=== PATIENT | female | born 1970 | race Caucasian/White ===

== ENCOUNTER 2023-02-16 13:07 | Outpatient (REF) | payer OTHER, SELFPAY ==
--- NOTE | ~2023-02-16 | XR_ITS ---
EXAMINATION: XR THORACIC SPINE XR LUMBAR SPINE CLINICAL INFORMATION: Scoliosis. COMPARISON: None available. TECHNIQUE: 2 views thoracic spine, 4 views lumbar spine. FINDINGS: There is a cssshgzt-tn-jswrwt biconvex thoracolumbar scoliosis present. Mild degenerative changes are seen in the spine. There is mild grade 1 anterolisthesis of L5 upon S1. No acute fractures or bony destructive lesions are seen. Paraspinal soft tissues are unremarkable. There is no instability seen with flexion and extension. XR/XR thoracic spine 2V IMPRESSION: Biconvex thoracolumbar scoliosis with mild degenerative changes. Mild grade 1 anterolisthesis of L5 upon S1.
--- NOTE | ~2023-02-16 | XR_ITS ---
EXAMINATION: XR THORACIC SPINE XR LUMBAR SPINE CLINICAL INFORMATION: Scoliosis. COMPARISON: None available. TECHNIQUE: 2 views thoracic spine, 4 views lumbar spine. FINDINGS: There is a suiuihyq-yi-hdqucf biconvex thoracolumbar scoliosis present. Mild degenerative changes are seen in the spine. There is mild grade 1 anterolisthesis of L5 upon S1. No acute fractures or bony destructive lesions are seen. Paraspinal soft tissues are unremarkable. There is no instability seen with flexion and extension. XR/XR lumbar spine 4V min IMPRESSION: Biconvex thoracolumbar scoliosis with mild degenerative changes. Mild grade 1 anterolisthesis of L5 upon S1.
== END 2023-02-16 13:08 | disposition home or self-care (01) ==
LOC: HO.HOSX 13:07
PROVIDERS: PCP Internal Medicine; Visit Provider Physician Assistant
DX: M41.20 Other idiopathic scoliosis, site unspecified (principal)
CPT/HCPCS: 72070; 72110

== ENCOUNTER 2023-02-16 13:07 | Outpatient (AMB) | payer OTHER, SELFPAY ==
--- NOTE | 2023-02-16 13:42 | HO.SPINEOV ---
Intake Intake Visit Reasons: Scoliosis Intake Note: Mrs. Yoder is here today regarding scoliosis. No Imaging. Senior Branch Manager Required: No Assessment & Plan Assessment & Plan (1) Scoliosis (and kyphoscoliosis), idiopathic: Code(s): M41.20 - Other idiopathic scoliosis, site unspecified Plan . This is a very nice 52-year-old female presents to the office today for evaluation of scoliosis. The patient has known about her scoliosis since she was a teenage girl, she was in a brace and has been dealing with on and off back pain since that time. Over the last 5 years, but more so in the last year she has had a severe centralize lower lumbar pain with radiation to the left side. She does not report any specific radicular symptoms. Her back pain is aggravated with standing and walking and will go away if she lays down flat. She takes ibuprofen as needed. Through the years she has been through all the usual conservative treatments including healthcare administration intern, physical therapy and acupuncture. She has not yet had any injections. At this point, the pain is getting to where it does affect her quality of life on a daily basis. It is not limiting her in the sense that it is disabling but it is persistent and always present. PMH: She is otherwise healthy Social hx: She does not smoke Medications: Ibuprofen Allergies: None Physical exam: Awake alert oriented no acute distress, intact strength and reflexes of the lower extremities. Imaging review: No MRI or CT to review today, the patient was sent for standing AP and lateral thoracic and lumbar films. She has an S shaped curve from her midthoracic dextroscoliosis, as well as a levoscoliosis in her lumbar spine. The apex seems to be at the L2 and L3 vertebral bodies. It does extend from L1 down all the way L5 however.. Impression: This is a very nice 52-year-old female presents for evaluation of scoliosis the been getting progressively worse over the last 5 years, but persistently worse over the last year so. The pain is not disabling, but it is affecting her quality of life. She has tried many of the usual conservative treatments. She has not yet had any cortisone injections. Her neurological examination is intact. Her gait she has x-rays showing a significant levo scoliotic curve in the lumbar spine with the apex at the L2-3 region but extending from L1 down to the L5 level. We briefly discussed the fact that this would require scoliosis correction with interbody fusion to be treated surgically. We generally reserve this for people who gotten to the point were the pain has become intolerable. She does not feel at this point that that is where she is at but she is concerned with the fact that as time goes on could it be come more complicated fix, or could the recovery become significantly more difficult for her as she gets older. I told her we should get some imaging 1st, lumbar MRI and lumbar CT and have her come back and visit with Dr. Castro. Thank you for allowing us to care for your patient. The total time spent with this visit with this patient was 45 minutes reviewing history, physical exam, x-ray of lumbar and thoracic imaging review, and implementation of treatment plan or further diagnostic testing Trevor Castro MD,PhD [facility] Orders: Orders XR lumbar spine 4V min Today M41.20 - Other idiopathic scoliosis, site unspecified XR thoracic spine 2V Today M41.20 - Other idiopathic scoliosis, site unspecified CT lumbar spine wo IV con Today M41.20 - Other idiopathic scoliosis, site unspecified MR lumbar spine wo con Today M41.20 - Other idiopathic scoliosis, site unspecified Coding Level of Care Code New Pt Level 4 (30582) Diagnoses Scoliosis (and kyphoscoliosis), idiopathic M41.20
== END 2023-02-16 14:06 | disposition home or self-care (01) ==
PROVIDERS: PCP Internal Medicine; Visit Provider Physician Assistant
DX: M41.20 Other idiopathic scoliosis, site unspecified (principal)
CPT/HCPCS: 99204

== ENCOUNTER 2023-08-24 18:16 | Outpatient (REF) | payer BC, SELFPAY ==
--- NOTE | ~2023-08-24 | MR_ITS ---
EXAMINATION: MR LUMBAR SPINE WITHOUT CONTRAST CLINICAL INFORMATION: Idiopathic scoliosis. Low back pain. COMPARISON: X-ray dated 02/16/2023. TECHNIQUE: Multiplanar, multisequence imaging was obtained. FINDINGS: VERTEBRAL BODIES AND PARASPINAL STRUCTURES: There is a severe leftward curvature of the lumbar spine centered at the L2-L3 level. Significant multilevel right lateral disc space narrowing and endplate spurring noted, most severe at the L2-L3 level. There are mixed chronic and edematous endplate changes at the L2-L3 and L3-L4 levels. No compression fractures identified. No significant subluxations visible. There is mild edema in the posterior paraspinal soft tissues in the mid to upper lumbar spine on the right side which may be due to strain-type injury. CONUS MEDULLARIS AND CAUDA EQUINE: The distal cord, conus tip, and cauda equina nerve roots are normal. SPINAL LEVELS: L1-L2: Posterior subluxation and mild disc bulge present with mild facet arthropathy. No central canal stenosis. Mild right foraminal narrowing. L2-L3: Severe disc space narrowing with chronic fatty marrow endplate changes and ossific spurring. Mild facet arthropathy. No central canal stenosis. Nsnr-ao-agnysift right foraminal narrowing with bulging disc mildly encroach upon the right subarticular zone. L3-L4: Diffuse disc bulge and moderate facet arthropathy with thickening of the ligamentum flavum contributes to afbl-vd-bwwjmcce central canal stenosis and moderate bilateral foraminal narrowing. Mild endplate edematous changes as well. L4-L5: Mild disc bulge and dlrstobk-qk-jcyvxc facet arthropathy, worse on the left side. Mild central canal stenosis. Bulging disc and osseous spurring with significant left foraminal encroachment. Milder right foraminal narrowing. L5-S1: Disc bulge and ztxluius-xn-rzisnz facet arthropathy, worse on the left side, with facet spurring impressing upon the left S1 nerve root. No central canal stenosis. Severe left foraminal narrowing with bulging disc and osseous spurring distorting the exiting left L5 nerve root. MR/MR lumbar spine wo con IMPRESSION: Significant leftward lumbar spinal curvature with mixed chronic and edematous endplate changes at various levels. Uabp-ek-fjzwlpic central canal stenosis due to spondylosis at the L3-L4 level with moderate bilateral foraminal narrowing. Significant facet arthropathy on the left side at the L4-L5 level with mild central canal stenosis and severe left foraminal narrowing. Exuberant left-sided facet arthropathy and disc bulge at the L5-S1 level with severe left foraminal narrowing and distortion of the exiting left L5 nerve root.
== END 2023-08-24 18:17 | disposition home or self-care (01) ==
LOC: HO.MRI 18:16
PROVIDERS: PCP Internal Medicine; Visit Provider Physician Assistant
DX: M41.20 Other idiopathic scoliosis, site unspecified (principal)
CPT/HCPCS: 72148

== ENCOUNTER 2024-12-06 07:49 | Outpatient (AMB) | payer OTHER, SELFPAY ==
--- OUTSIDE RECORDS SUMMARY | 2024-12-06 07:57 | XMS_ITS | Clinical Summary ---
Author Organization [facility] [facility] lin Address [address] [facility] [place] [address] Care Team Providers Care Clean Room Operator Name Role Phone Pcp, No Primary Care Provider [phone] Allergies No known active allergies Medications lorazepam (ATIVAN) 0.5 MG tablet TAKE ONE TABLET BY MOUTH TWICE A DAY NEEDED 04/07/2023 Active valACYclovir (VALTREX) 500 MG tablet Take 1 tablet (500 mg total) by mouth 08/24/2022 Active Social History Tobacco Use Types Packs/Day Years Used Date Smoking Tobacco: Never Smokeless Tobacco: Never Tobacco Cessation:Counseling Given: Yes Comments No Sex and Gender Information Value Date Recorded Sex Assigned at Not on file Legal Sex Female 9:24 AM EST Gender Identity Not on file Sexual Orientation Not on file Last Filed Vital Signs Vital Sign Reading Time Taken Comments Blood Pressure 126/80 05/18/2023 4:58 PM EST Pulse 79 05/18/2023 4:58 PM EST Temperature 36.6 C (97.8 F) 05/18/2023 4:58 PM EST Respiratory Rate 16 05/18/2023 4:58 PM EST Oxygen Saturation 98% 05/18/2023 4:58 PM EST Inhaled Oxygen Concentration - - Weight 59 kg (130 lb) 05/18/2023 4:58 PM EST Height 162.6 cm (5' 4 ) 05/18/2023 4:58 PM EST Body Mass Index 22.31 05/18/2023 4:58 PM EST Plan of Treatment Health Maintenance Due Date Last Done Comments Colorectal Cancer: COLONOSCO PY Screening every 10 yrs (or Modifier) 1968 Depression: Screening Annual ly using PHQ-2/9 in Adults 18 yrs or above (or HM Modifier)([facility]) 1986 Hepatitis C Virus Infection in Adolescents and Adults: Screening (or Modifier) ([facility]) 1986 DEYA Screening: Once using ST OP-BANG Questionnaire for Adults with Conditions or high BMI([facility]) 1986 SDOH Screening Reminder: Jennifer uallamaury for all adults ([facility]) 1986 DTaP/Tdap/Td Vaccines ([facility]) (1 - Tdap) 08/09/1987 Cervical Cancer Screenin 1-65 yrs of age (or Modifier) 1989 Cervical Cancer Screening: P ap every 3 yrs pts age 21-65 1989 Cervical Cancer: Pap Screeni ng with Modifier timing ([facility]) 1989 Cervical Cancer: hrHPV alone or with cotesting Pap for Pts 30-65yrs screening every 5yrs ([facility]) 1989 Colorectal Cancer Screening 45 -75 Yrs (or HM Modifier) 2013 Colorectal Cancer: FLEXIBLE SIGMOIDOSCOPY Screening every 5 yrs 2013 Colorectal Cancer: Fecal Imm unochemical Test (FIT) Annually [facility] 2013 Colorectal Cancer: High-sens itivity gFOBT Screening Annually [facility] 2013 Colorectal Cancer: Stool Col oguard Screening every 3 yrs 2013 Colorectal Cancer:CT Colonog dalia Screening every 5 yrs 2013 Breast Cancer: Screening Jennifer catalina age 50-74 yrs (or HM Modifier)([facility]) 2018 Pneumococcal Vaccination Scr eening: Patients 50+ yrs of age ([facility]) (1 of 1 - PCV) 2018 Zoster/Shingles Vaccine Seri es Screening: Adults aged 18+ yrs (or HM Modifiers)([facility]) (1 of 2) 2018 Tobacco Smoking Cessation: i n Adults excluding Women: Behavioral and Pharmacotherapy Interventions ([facility]) 05/18/2024 05/18/2023 Flu Vaccination: Yearly for ages 18mos through 64 years (or Modifier)([facility]) 11/03/2024 Medical Devices Not on file Insurance Dr GandhiDAPHNIE [id number] [place] Care Teams Clean Room Operator Relationship Specialty Start Date End Date Pcp, No PCP - General Family Medicine 05/18/23
--- OUTSIDE RECORDS SUMMARY | 2024-12-06 07:57 | XMS_ITS | Clinical Summary ---
Author Organization [facility] [address] [facility] [address] [place] [address] Phone Care Team Providers Care Narcotics Investigator Name Role Phone Destiny Padilla NP Primary Care Provider [phone] Encounters Date Type Department Care Team Description 11/16/2024 Telephone Gastroenterology - 299 [facility] [address] [address] Bryan Garrison MD from Last 3 Months Social History Tobacco Use Types Packs/Day Years Used Date Smoking Tobacco: Never Assessed Comments Unknown Sex and Gender Information Value Date Recorded Sex Assigned at Female 11/17/2024 1:39 PM EDT Legal Sex Female 2:15 PM EST Gender Identity Female 11/17/2024 1:39 PM EDT Sexual Orientation Not on file Plan of Treatment Health Maintenance Due Date Last Done Comments Breast Cancer Screening 1968 DTaP,Tdap,and Td Vaccines (1 - Tdap) 08/09/1987 Hepatitis B Vaccines (1 of 3 - 19+ 3-dose series) 08/09/1987 Cervical Cancer Screening: P ap Smear 1989 Pneumococcal Vaccine: 50+ Ye ars (1 of 1 - PCV) 2018 Zoster Vaccines (1 of 2) 2018 COVID-19 Vaccine ( - 2023-2 5 season) 2023 Depression Screening 04/05/2024 Colorectal Cancer Screening: Colonoscopy 11/16/2024 HIV Screening 11/16/2024 Hepatitis C Screening 11/16/2024 Social Influencers of Health Screening 11/16/2024 Influenza Vaccine (#1) 2024 HIB Vaccines Aged Out No longer eligi ble based on patient's age to complete this topic HPV Vaccines Aged Out No longer eligi ble based on patient's age to complete this topic Hepatitis A Vaccines Aged Out No long er eligible based on patient's age to complete this topic IPV Vaccines Aged Out No longer eligi ble based on patient's age to complete this topic MMR Vaccines Aged Out No longer eligi ble based on patient's age to complete this topic Meningococcal ACWY Vaccine Aged Out N o longer eligible based on patient's age to complete this topic Meningococcal B Vaccine Aged Out No l onger eligible based on patient's age to complete this topic RSV Immunization Patients Un mitchell 20 months Aged Out No longer eligible b ased on patient's age to complete this topic Varicella Vaccines Aged Out No longer eligible based on patient's age to complete [place] [id number] [facility] Care Teams Narcotics Investigator Relationship Specialty Start Date End Date Destiny Padilla NP [address] [place] [id number] PCP - General Internal Medicine 11/16/24
--- OUTSIDE RECORDS SUMMARY | 2024-12-06 07:57 | XMS_ITS | Encounter Summary ---
Author Organization [facility] Address [address] [place] [address] Care Team Providers Care Customer Support Analyst Name Role Phone Destiny Padilla NP Primary Care Provider [phone] Reason for Visit * Reason Onset Date Comments information needed 11/16/2024 Encounter Details Date Type Department Care Team ([facility] st Contact Info) Description 11/16/2024 Telephone Gastroenterology - [address] [place] [address] Bryan Garrison MD [address] [place] [phone] Social History Tobacco Use Types Packs/Day Years Used Date Smoking Tobacco: Never Assessed Comments Unknown Sex and Gender Information Value Date Recorded Sex Assigned at Female 11/17/2024 1:39 PM EDT Legal Sex Female 2:15 PM EST Gender Identity Female 11/17/2024 1:39 PM EDT Sexual Orientation Not on file documented as of this encounter Progress Notes * Nicki Babb - 11/17/2024 1:41 PM EDT Records received from Dr. Padilla's office to book direct colon, still missing insurance referral, medications and allergies list. Will fax missing sheet to pcp and leave records in missing accordion. * Nicki Babb - 11/16/2024 8:21 AM EDT Records received from Dr. Padilla's office to book direct colon, missing last office note, demos, insurance info, insurance referral if required, medications and allergies list. Will fax missing sheet to pcp and leave records in missing accordion. documented in this encounter Plan of Treatment Not on file documented as of this encounter Visit Diagnoses Not on filedocumented in this encounter Care Teams Customer Support Analyst Relationship Specialty Start Date End Date Destiny Padilla NP [address] [place] [address] PCP - General Internal Medicine 11/16/24 documented as of this encounter
--- OUTSIDE RECORDS SUMMARY | 2024-12-06 07:57 | XMS_ITS | Clinical Summary ---
Author Organization [facility] Address [address] [place] [phone] Phone Care Team Providers Care Identity Management Consultant Name Role Phone Mick Garcia MD Primary Care Provider Allergies No known active allergies Medications LORazepam (ATIVAN) 0.5 MG tablet Take 1 tablet by mouth 2 (two) times a day. 01/19/2024 Active ACYCLOVIR ORAL Take 1 g by mouth. Active Social History Tobacco Use Types Packs/Day Years Used Date Smoking Tobacco: Never Smokeless Tobacco: Never Tobacco Cessation:Counseling Given: Not Answered Education Answer Date Recorded Are you interested in more education? Not on ailin e 12/22/2023 Are you concerned about learning? Not on file 12/22/2023 No 12/22/2023 No 12/22/2023 Digital Access Answer Date Recorded No 12/22/2023 No 12/22/2023 Reliable internet access at home? Not on file 12/22/2023 Device with a working camera? Not on file Comments Unknown Sex and Gender Information Value Date Recorded Sex Assigned at Female 12/22/2023 3:32 PM EDT Legal Sex Female 12:39 PM EDT Gender Identity Female 12/22/2023 3:32 PM EDT Sexual Orientation Straight 12/22/2023 3: 32 PM EDT Last Filed Vital Signs Vital Sign Reading Time Taken Comments Blood Pressure 110/64 02/08/2024 12:31 PM EST Pulse 74 02/08/2024 12:31 PM EST Temperature 36.6 C (97.8 F) 02/08/2024 12:31 PM EST Respiratory Rate 16 02/08/2024 12:31 PM EST Oxygen Saturation 97% 02/08/2024 12:31 PM EST Inhaled Oxygen Concentration - - Weight 60 kg (132 lb 4.8 oz) 02/08/2024 12:31 PM EST with shoes Height 160 cm (5' 3 ) 02/08/2024 12:31 PM EST Body Mass Index 23.44 02/08/2024 12:31 PM EST Plan of Treatment Health Maintenance Due Date Last Done Comments Adult Td,Tdap Booster 1968 LIPID PANEL 1968 HEPATITIS C SCREENING 1986 HIV ONE-TIME SCREENING (18-6 5 YEARS) 1986 PAP SMEAR 1989 MAMMOGRAM 2008 COLOGUARD 2013 COLONOSCOPY 2013 COLORECTAL CANCER SCREENING 2013 FIT TEST 2013 FOBT 2013 SIGMOIDOSCOPY 2013 VIRTUAL COLONOSCOPY 2013 PNEUMOCOCCAL VACCINES (50+ years) (1 of 1 - PCV) 2018 ZOSTER VACCINES (1 of 2) 2018 INFLUENZA VACCINE (#1) 2024 04/15/2012 COVID-19 VACCINE (2024-2 6 season) 2024 03/14/2021, 06/18/2020, 05/26/2020 DEPRESSION SCREENING 02/07/2025 02/08/2024 SMOKING STATUS SCREENING (On ce After 26 Yrs) Completed 02/08/2024 HEPATITIS A VACCINES Aged Out No long er eligible based on patient's age to complete this topic HIB VACCINES Aged Out No longer eligi ble based on patient's age to complete this topic MENINGOCOCCAL VACCINES (ACWY) Aged Out No longer eligible based on patient's age to complete this topic MENINGOCOCCAL VACCINES (B) Aged Out N o longer eligible based on patient's age to complete this topic Medical Devices Not on file Insurance BLUE CROSS OUT OF STATE PPO BLUE CROSS OUT OF [facility] PPO BLUE CROSS OUT OF STATE PPO BLUE CROSS OUT OF STATE PPO BLUE CROSS OUT OF STATE PPO BLUE CROSS OUT OF STATE PPO Care Teams Identity Management Consultant Relationship Specialty Start Date End Date Mick Garcia MD [address] [place] [phone] PCP - General Internal Medicine 12/06/14 Additional Source Comments The information contained in this document represents components of the legal health record. It is not the complete legal health record.[facility]
--- NOTE | 2024-12-06 08:12 | MHC.OFFVIS ---
Vital Signs 12/06/24 08:31 BP 106/74 Pulse 74 Intake Visit Reasons: colo screen okayed by provider HPI HPI colo screen okayed by provider: Details: HPI 54 yr old f here for assessment She is due colonsocopy due to FH of polyps in mother and personal polyps last colonoscopy with rosangela, 5 yrs ago and polyp removed she has some bloating liver lesion- awaiting MRI, prob hemangioma she has bloating, no abdominal pain no nausea or vomiting ROS: Constitutional : No Weight loss, No Fever, No Chills ENT/Mouth : No sore throat, No Rhinorrhea Eyes: No Swelling, No Redness Cardiovascular : No Chest Pain, No SOB, No Edema Respiratory : No Cough, No Sputum, No Wheezing Gastrointestinal : see HPI Genitourinary : NO Dysuria, No Urinary Frequency, No Hematuria, No Urgency Musculoskeletal : no joint pain, No Myalgias, No Joint Swelling- back discomfort Skin : No Skin Lesions, No rash Neuro : No Weakness, No Numbness, No Dizziness, No Headache Psych : No Anxiety/Panic, No Depression Heme/Lymph: No Bruising, No Lymphadenopathy Endocrine : No Polyuria, No Polydipsia All other systems reviewed and are negative. Medical History schwannomas scoliosis high cholesterol Surgical History cosmetics Family History father had panc ca, mother had polyps Social History non smoker, no alcohol, no drug use retired EXAM: GENERAL: The patient is well developed and nontoxic. VITAL SIGNS:see workflow HEENT: Nonicteric sclerae, PERRLA, EOMI. Oropharynx clear. Moist mucous membranes. Conjunctivae appear well perfused. No thyroid mass. CHEST: Chest wall is nontender. HEART: Regular rate and rhythm without murmurs. LUNGS: Clear to auscultation bilaterally. ABDOMEN: Soft, positive bowel sounds, nontender, no organomegaly.no flank tenderness SKIN: No rash, no excessive bruising, petechiae, or purpura. NEUROLOGIC: Cranial nerves II-XII intact without motor/sensory deficit. Psych: normal affect MS: scoliosis noted A/P: 1/ Screening colonoscopy - hx of polyps, 2/ bloating- not noted any link with dairy or food 3/ liver lesion PLAN: 1/ colonoscopy-- suprep 2/ trial of rifaximin, food dairy in case of SIBO 3/ await MRI Physical Exam Vital Signs: Last Vital Signs Pulse 74 12/06/24 08:31 BP 106/74 12/06/24 08:31 Assessment & Plan Assessment & Plan (1) Colon cancer screening: Code(s): Z12.11 - Encounter for screening for malignant neoplasm of colon Category: Medical Plan: as above (2) Abdominal bloating: Code(s): R14.0 - Abdominal distension (gaseous) Category: Medical Plan: as above Medications: New sodium,potassium,mag sulfates 17.5-3.13-1.6 gram (Suprep Bowel Prep Kit) DILUTE; drink 1/2 at 6-8 pm and half at 11 PM- 1AM 354 mL 0RF ondansetron 4 mg PO Q8H PRN 10 tabs 0RF nausea and vomiting rifaximin 550 mg PO TID 42 tabs 0RF 2 weeks Coding Level of Care Code New Pt Level 4 (16928) Diagnoses Colon cancer screening Z12.11 Abdominal bloating R14.0
[2024-12-06 08:31] VITALS: BP 106/74; PULSE 74
== END 2024-12-06 08:39 | disposition home or self-care (01) ==
LOC: HO.HGI 07:51
PROVIDERS: Visit Provider Internal Medicine Gastroenterology
DX: Z01.818 Encounter for other preprocedural examination (principal); Z12.11 Encounter for screening for malignant neoplasm of colon; R14.0 Abdominal distension (gaseous)
CPT/HCPCS: 99203

== ENCOUNTER 2025-01-09 06:48 | Day surgery (SDC) | payer OTHER, SELFPAY ==
--- OUTSIDE RECORDS SUMMARY | 2024-12-25 14:36 | XMS_ITS | Clinical Summary ---
Author Organization [facility] [address] [facility] Address [address] [place] [address] Phone Care Team Providers Care Cd Manufacturing Supervisor Name Role Phone Destiny Padilla NP Primary Care Provider [phone] Encounters Date Type Department Care Team Description 11/16/2024 Telephone Gastroenterology - 299 [facility] [address] [address] Bryan Garrison MD from Last [...] 2018 Zoster Vaccines (1 of 2) 2018 Depression Screening 04/05/2024 Colorectal Cancer Screening: Colonoscopy 11/16/2024 HIV Screening 11/16/2024 Hepatitis C Screening 11/16/2024 Social Influencers of Health Screening 11/16/2024 COVID-19 Vaccine (1 - 2023-2 5 season) 2024 Influenza Vaccine (#1) 2024 HIB Vaccines Aged [...] complete [place] [id number] [facility] Care Teams Cd Manufacturing Supervisor Relationship Specialty Start Date End Date Destiny Padilla NP [address] [place] [phone] PCP - General Internal Medicine 11/16/24
--- OUTSIDE RECORDS SUMMARY | 2024-12-25 14:36 | XMS_ITS | Clinical Summary ---
Author Organization [facility] [employer] [facility] lin Address [address] [facility] [place] [address] Care Team Providers Care Tunnel Kiln Operator Name Role Phone Pcp, No Primary Care Provider [phone] Allergies No known active allergies Medications lorazepam [...] Adults 18 yrs or above (or HM Modifier)([facility]) 1986 Hepatitis C Virus Infection in Adolescents and Adults: Screening (or Modifier) ([facility]) 1986 DEYA Screening: Once using ST [facility] Questionnaire for Adults with Conditions or high BMI([facility]) 1986 SDOH Screening Reminder: Jennifer ually for all adults ([facility]) 1986 DTaP/Tdap/Td Vaccines ([facility]) (1 - Tdap) 08/09/1987 Cervical Cancer Screenin 1-65 yrs of age (or Modifier) 1989 Cervical Cancer Screening: P ap every 3 yrs pts age 21-65 1989 Cervical Cancer: Pap Screeni ng with Modifier timing ([facility]) 1989 Cervical Cancer: hrHPV alone or with cotesting Pap for Pts 30-65yrs screening every 5yrs ([facility]) 1989 Colorectal Cancer Screening 45 -75 Yrs (or HM Modifier) 2013 Colorectal Cancer: FLEXIBLE SIGMOIDOSCOPY Screening every 5 yrs 2013 Colorectal Cancer: Fecal Immunochemical Test (FIT) Annually [facility] 2013 Colorectal Cancer: High-sens itivity gFOBT Screening Annually [facility] 2013 Colorectal Cancer: Stool Col oguard Screening every 3 yrs 2013 Colorectal Cancer:CT Colonog dalia Screening every 5 yrs 2013 Breast Cancer: Screening Jennifer phullamaury age 50-74 yrs (or HM Modifier)([facility]) 2018 Pneumococcal Vaccination Scr eening: Patients 50+ yrs of age ([facility]) (1 of 1 - PCV) 2018 Zoster/Shingles Vaccine Seri es Screening: Adults aged 18+ yrs (or HM Modifiers)([facility]) (1 of 2) 2018 Tobacco Smoking Cessation: i n Adults excluding Women: Behavioral and Pharmacotherapy Interventions ([facility]) 05/18/2024 05/18/2023 Flu Vaccination: Yearly for ages 18mos through 64 years (or Modifier)([facility]) 11/03/2024 COVID-19 Vaccine Screening: Initial Series and Booster Status ([facility]) (2024- season) 2024 03/14/2021, 06/18/2020, 05/26/2020 Medical Devices Not on file Insurance [facility] Care Teams Tunnel Kiln Operator Relationship Specialty Start Date End Date Pcp, No PCP - General Family Medicine 05/18/23
--- OUTSIDE RECORDS SUMMARY | 2024-12-25 14:36 | XMS_ITS | Clinical Summary ---
Author Organization [facility] Address [address] [place] [phone] Phone Care Team Providers Care Taxonomist Name Role Phone Mick Garcia MD Primary [...] OF STATE PPO BLUE CROSS OUT OF PENDING SALE TO [facility] PPO Member Subscriber Plan / Payer ( fective 2023-) Name:Lottie Yoder Relation to Subscriber:Spouse Name:BERNICE BURNETT Date of :1963 (Home) Address: [address] [place] [address] Payer ID:[id number] ([facility] Type:PPO Address: [facility] [id number] [place] [address] BLUE CROSS OUT OF STATE PPO BLUE CROSS OUT OF STATE PPO Member Subscriber Plan / Payer (Ef fective 2023-Present) Name:Lottie Yoder Relation to Subscriber:Spouse Name:BERNICE BURNETT Date of :1963 (Home) Address: [address] [place] [address] Payer ID:[id number] ([facility]) Type:PPO Address: [address] [place] [address] BLUE CROSS OUT OF STATE PPO Member Subscriber Plan / Payer (Ef fective 2023-) Name:Lottie Yoder Relation to Subscriber:Spouse Name:BERNICE BURNETT Date of :1963 (Home) Address: [address] [place] [address] Payer ID:[id number] ([facility]) Type:PPO Address: [address] [place] [address] BLUE CROSS OUT OF STATE PPO Care Teams Taxonomist Relationship Specialty Start Date End Date Mick Garcia MD [address] [place] [phone] PCP - General Internal Medicine 12/06/14 Additional Source Comments The information contained in this document represents components of the legal health record. It is not the complete legal health record.[facility]
--- NOTE | 2025-01-05 14:06 | HO.ANESPROP2 ---
Documented by User: Candy Hernandez NP 01/05/25 14:07 HPI - Anesthesia Eval Consult details Narrative: 54yo F for Colonoscopy PMFSH Active Problems Active Problems: All Active Problems Abdominal bloating (Acute) Colon cancer screening (Acute) Scoliosis (and kyphoscoliosis), idiopathic (Acute) Past Medical History Medical History (Updated 01/09/25 @ 07:26 by Marcella Garibay RN) Abnormal colonoscopy Scoliosis (and kyphoscoliosis), idiopathic Social History Social History Patient Tobacco Use Status: Never used Tobacco Use of substances other than those prescribed or required for medical reasons: No Are you DNR?: No Advance Directives: No Advance Directives Information Provided: Yes Patient : No : No Poor oral hygiene: No Meds Allergies Allergy/AdvReac Type Severity Reaction Status Date / Time No Known Allergies Allergy Verified 01/05/25 14:07 Home Medications ?Medication ?Instructions ?Recorded ?Confirmed ?Last Taken ?Type atorvastatin 20 mg tablet 20 mg PO DAILY 01/09/25 01/09/25 Unknown History lorazepam 0.5 mg tablet PO 01/09/25 01/09/25 Unknown History Assessment and Plan Assessment Anesthesia Assessment: Chart Reviewed Documented by User: Octavio Anderson MD 01/09/25 08:28 PMFSH Past Medical History Medical History (Updated 01/09/25 @ 07:26 by Marcella Garibay RN) Abnormal colonoscopy Scoliosis (and kyphoscoliosis), idiopathic Family History Family history of problems with anesthesia: No Surgical History History of Problems with Anesthesia: No Social History Social History Patient Tobacco Use Status: Never used Tobacco Use of substances other than those prescribed or required for medical reasons: No Are you DNR?: No Advance Directives: No Advance Directives Information Provided: Yes Patient : No : No Poor oral hygiene: No Meds Allergies Allergy/AdvReac Type Severity Reaction Status Date / Time No Known Allergies Allergy Verified 01/05/25 14:07 Home Medications ?Medication ?Instructions ?Recorded ?Confirmed ?Last Taken ?Type atorvastatin 20 mg tablet 20 mg PO DAILY 01/09/25 01/09/25 Unknown History lorazepam 0.5 mg tablet PO 01/09/25 01/09/25 Unknown History Exam Airway Mallampati Class: I TM Dist: >3cm Neck ROM: Full Loose/Missing/Broken Teeth: No Assessment and Plan Assessment Anesthesia Assessment: Anesthesia Plan Discussed Final Anesthetic Review Family History of Problems with Anesthesia: No History of Problems with Anesthesia: No NPO: Yes ASA Class: I Final Preanesthetic Review: No Changes in Pt Med Stat, Meds/Allgs Chart Reviewed, Consent Obtained/Reviewed and Anes Risks/Benef Reviewed Patient Risk: Low Procedure Risk: Low Anesthetic Plan Anesthetic Plan: MAC: Disposition: Standard PACU
[2025-01-09 07:32] VITALS: BMI 23.0
[2025-01-09 07:34] VITALS: BP 99/59; PULSE 72; RESP 16; TEMP 36.5; O2SAT 97
[2025-01-09] MEDS: Lactated Ringers 1,000 ML 100 ML IVCONT (07:47)
--- NOTE | 2025-01-09 08:12 | MHC.SHP ---
Pre-Procedural Eval Section A - 24 Hr Update-Section A only Date of Service: 01/09/25 Section B - Complete if H&P > 30 days Chief Complaint: Polyp of colon Details of Present Illness: fh of polyps in mother Relevant Family History (Specify if Yes): Yes Relevant Social History: None Present Medications: see Short Stay Collaborative assessment Medical History: Significant History (schwannomas scoliosis high cholesterol) History of Previous Operations: Relevant previous surgery/procedure and date(s) (cosmetics ) Allergies: Allergies Allergy/AdvReac Type Severity Reaction Status Date / Time No Known Allergies Allergy Verified 01/05/25 14:07 Review of Systems Sugical H&P ROS: Negative: Constitution, Cardiovascular, Respiratory, Neurological, Psychiatric, Hem-Onc, Allergic/Immunologic, Gastrointestinal, Genitourinary, Musculoskeletal, Integumentary, Endocrine and Eyes/Ears/Nose/Throat Exam Surgical H&P Exam: Normal: HEENT, Normal: Heart, Normal: Lungs, Normal: Extremities, Normal: Abdomen, Normal: Skin and Normal: Neurological Plan Diagnosis/Plan: Unchanged I have reviewed the history and physical and performed a pertinent physical examination on my patient. No changes have occurred unless specified. Time Spent With Patient Time: Total time managing care of this patient today ____ minutes.
--- NOTE | 2025-01-09 08:50 | HO.OPN-COLON ---
Colonoscopy Operative Note Operative Note Date of Service: 01/09/25 Narrative: Operative Information Procedure Description: Colonoscopy Indication: screening, FH of polyps Anesthesia: MAC COLONOSCOPY Instrument: Olympus variable stiffness pediatric scope 190L Colonoscopy Monitoring: Vital signs and clinical assessment, continuous EKG monitoring, Pulse oximetry, Carbon Dioxide monitoring and blood pressure monitoring were done throughout the procedure. Colon withdrawal time was 18 minutes. Procedure: The patient was placed in the left lateral decubitis position and pre-procedure medications were administered. After a digital rectal examination of the ano-rectum, the video colonoscope was inserted into the rectum and advanced through the colon to the cecum/TI. The colonoscope was slowly withdrawn in a retrograde panoramic fashion and the colon mucosa was carefully examined including a retroflexed view of the rectum. Findings and interventions are described below. Procedure Difficulty: moderate Findings: Terminal Ileum-normal Cecum: few diverticula seen Ascending Colon: normal Transverse Colon -normal Descending Colon:normal Sigmoid Colon: moderate diverticulosis Rectum: Retroflexion with medium sized internal hemorrhoids seen, grade I with some prolapse changes seen, bx taken, x 3 sessile polyps 6-8 mm removed with cold snare Anorectum - normal Intervention: cold snare, cold forceps Colon preparation: [place] Bowel Preparation Scale Right colon; 2 Transverse colon: 2 Left colon; 2 (0 = Unprepared colon segment with mucosa not seen due to solid stool that cannot be cleared. 1 = Portion of mucosa of the colon segment seen, but other areas of the colon segment not well seen due to staining, residual stool and/or opaque liquid. 2 = Minor amount of residual staining, small fragments of stool and/or opaque liquid, but mucosa of colon segment seen well. 3 = Entire mucosa of colon segment seen well with no residual staining, small fragments of stool or opaque liquid) Impression and Post Procedure Diagnosis: diverticulosis colon polyps x 3 internal hemorrhoids rectal prolapse changes suspected Plan: High fiber diet leaflet Avoid straining at stool, epsom salts and sitz bath, anusol supps or cream Repeat Colonoscopy in 5 years due to FH or earlier if clinically indicated Above findings were reviewed with the patient and relevant handouts were provided if indicated.
[2025-01-09 08:56] VITALS: BP 100/58; PULSE 68; RESP 14; TEMP 36.1; O2SAT 98
[2025-01-09 09:11] VITALS: BP 108/57; PULSE 74; RESP 18; TEMP 36.1; O2SAT 99
== END 2025-01-09 09:43 | disposition home or self-care (01) ==
PROVIDERS: PCP Internal Medicine; Visit Provider Internal Medicine Gastroenterology
PROC: 0DJD8ZZ Inspection of Lower Intestinal Tract, Via Natural or Artificial Opening Endoscopic (ICD-10-PCS; CPT 45378; principal; 2025-01-09 08:20)
DX: Z12.11 Encounter for screening for malignant neoplasm of colon (principal); Z86.0109 Personal history of other colon polyps; Z83.718 Family history of other colon polyps; R14.0 Abdominal distension (gaseous); K57.30 Diverticulosis of large intestine without perforation or abscess without bleeding; K64.0 First degree hemorrhoids; K63.4 Enteroptosis; K63.5 Polyp of colon
CPT/HCPCS: 45385; 45380; 88305; J2003; J2704

== ENCOUNTER → 2025-01-09 06:48 | Outpatient (BNV) | payer OTHER, SELFPAY | PROVIDERS: PCP Internal Medicine; Visit Provider Internal Medicine Gastroenterology | DX: Z12.11 Encounter for screening for malignant neoplasm of colon (principal); D12.8 Benign neoplasm of rectum; K57.90 Diverticulosis of intestine, part unspecified, without perforation or abscess without bleeding; K64.0 First degree hemorrhoids | CPT/HCPCS: 45385 ==